=== PATIENT | female | born 1965 | race Caucasian/White ===

== ENCOUNTER 2017-09-03 08:44 | Day surgery (SDC) | payer OTHER ==
[~2017-09-03] VITALS: Ht 170.2 cm; Wt 130.6 kg
[~2017-09-03 08:44] MED LIST: ACYC800 PO; ALPR.25 PO; ALPR.5 PO; ALPR1 PO; Bactrim Ds Tab1 EACH PO; CARI350 PO; CEPH500 PO; ESCI10 PO; ESTR2 PO; FAMO20 PO; GABA400 PO; HORMONE PATCH; HYDACE5 PO; IBUHYD PO; LISI20 PO; MULTIVITAMIN PO; OXYACE5T PO; PROM25 PO; RXOXYACE PO; RXPROACE PO; TRAZ100 PO
[2017-09-03] MEDS ORDERED: GABA100 PO (09:47)
[2017-09-03] MEDS ORDERED: DULO60 PO (09:48)
[2017-09-03] MEDS ORDERED: TRAZ100 PO (09:52)
== END 2017-09-03 13:48 | disposition home or self-care (01) ==
LOC: ORSCSDS 08:44
PROVIDERS: Orthopaedic Surgery
PROC: 0RNK4ZZ Release Left Shoulder Joint, Percutaneous Endoscopic Approach (ICD-10-PCS; principal; 2017-09-03 10:45)
PROC: 0LQ24ZZ Repair Left Shoulder Tendon, Percutaneous Endoscopic Approach (ICD-10-PCS; principal; 2017-09-03 10:45)
PROC: 0LS24ZZ Reposition Left Shoulder Tendon, Percutaneous Endoscopic Approach (ICD-10-PCS; principal; 2017-09-03 10:45)
DX: M75.122 Complete rotator cuff tear or rupture of left shoulder, not specified as traumatic (principal); M75.22 Bicipital tendinitis, left shoulder; M75.42 Impingement syndrome of left shoulder; I10 Essential (primary) hypertension; Z87.891 Personal history of nicotine dependence; Z86.73 Personal history of transient ischemic attack (TIA), and cerebral infarction without residual deficits; E66.01 Morbid (severe) obesity due to excess calories; Z68.42 Body mass index [BMI] 45.0-49.9, adult; Z79.899 Other long term (current) drug therapy
CPT/HCPCS: C1713; J0171; J0330; J0690; J1100; J2250; J2370; J2405; J2710; J3010; J7120

== ENCOUNTER 2018-05-12 22:19 | Inpatient (IN) | payer OTHER ==
[~2018-05-12] VITALS: Ht 170.2 cm; Wt 134.5 kg
[~2018-05-12 22:19] MED LIST changes: +DULO60 PO; +GABA100 PO
[2018-05-12 22:49] LABS: BASOPHILS ABSOLUTE AUTO 0.05 K/mm3 (0.00-0.23); BASOPHILS PERCENT AUTO 1 % (0-2); EOSINOPHILS ABSOLUTE AUTO 0.04 K/mm3 (0.00-0.68); EOSINOPHILS PERCENT AUTO 0 % (0-6); Hematocrit 43.2 % (33.0-51.0); Hemoglobin 13.9 g/dL (11.5-16.0); IMMATURE GRAN ABSOLUTE AUTO 0.07 K/mm3 (0.00-0.10); IMMATURE GRAN PERCENT AUTO 1 % (0-1); LYMPHOCYTES ABSOLUTE AUTO 1.17 K/mm3 (0.84-5.20); LYMPHOCYTES PERCENT AUTO 11 % (21-46); MONOCYTES ABSOLUTE AUTO 0.16 K/mm3 (0.16-1.47); MONOCYTES PERCENT AUTO 2 % (4-13); Mean Corpuscular HGB 28.6 pg (26.0-34.0); Mean Corpuscular HGB Conc 32.2 g/dL (31.5-36.5); Mean Corpuscular Volume 89 fL (80-100); Mean Platelet Volume 8.8 fL (9.1-12.4); NEUTROPHILS ABSOLUTE AUTO 9.51 K/mm3 (1.96-9.15); NEUTROPHILS PERCENT AUTO 86 % (41-73); Platelet Count 370 K/mm3 (150-400); RDW Coefficient Variation 12.8 % (11.7-14.2); RDW Standard Deviation 41.8 fL (35.1-46.3); Red Blood Cell Count 4.86 M/mm3 (3.80-5.20)
[2018-05-12] MEDS ORDERED: PRED20 PO (22:58)
[2018-05-12] MEDS ORDERED: BENZ100A ×2 (22:59)
[2018-05-12] MEDS ORDERED: Zithromax Tri-500 MG (23:00)
[2018-05-12 23:06] LABS: Troponin I <0.015 ng/mL (0.000-0.040)
[2018-05-12 23:13] LABS: Alanine Aminotransfer (ALT/SGP 23 U/L (12-78); Albumin, Blood 3.7 g/dL (3.4-5.0); Albumin/Globulin Ratio 0.8 (0.8-1.8); Alk Phos 66 U/L (50-136); Anion Gap 8 mmol/L (6-16); Aspartate Aminotrans (AST/SGOT 15 U/L (12-37); Bilirubin, Total 0.3 mg/dL (0.1-1.0); Blood Urea Nitrogen 19 mg/dL (8-24); Bun/Creatinine Ratio 27.5 (12.0-20.0); CO2, Blood 23 mmol/L (21-32); Calcium, Blood 9.2 mg/dL (8.5-10.1); Chloride, Blood 107 mmol/L (98-108); Creatinine, Blood 0.69 mg/dL (0.40-1.00); Globulin, Blood 4.8 g/dL (2.2-4.0); Glomerular Filtration Rate >60 (60-); Glucose, Blood 130 mg/dL (70-99); Potassium, Blood 4.3 mmol/L (3.5-5.5); Sodium, Blood 138 mmol/L (136-145); Total Protein, Blood 8.5 g/dL (6.4-8.2)
[2018-05-13 00:03] LABS: Base Excess Venous -0.5 mmol/L; PCO2 Venous 35.6 mmHg (38-42); PO2 Venous 49.3 mmHg (38-42); pH Blood Venous 7.43 (7.34-7.37)
--- NOTE | 2018-05-13 01:27 | NUR ---
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 PT ARRIVED TO ROOM VIA W/C, ABLE TO STAND AND TRANSFER SELF TO BED WITH SBA BUT DOES BECOME VERY SOB. LS VERY COARSE WITH EXP WHEEZES T/O. BP ELEVATED. PT STARTED ON IV ABX. CALLED RT FOR NEB TX AND HYDRALAZINE GIVEN. WILL RE-EVALUATE.
--- NOTE | 2018-05-13 06:25 | NUR ---
NEW ADMIT THIS SHIFT FROM ER FOR REACTIVE AIRWAY. PT WAS VERY SOB WITH WHEEZES WHEN ARRIVED TO UNIT. THEN DEVELOPED SEVERE CALERO. CALLED DR. RINCON TWICE WITH RE TO BP AND CALERO. PT WAS MEDICATED (PER EMAR) AND IS NOW FINALLY RESTING WELL WITH NO RESP DISTRESS AND ON RA. WILL CONT TO MONITOR AND CALL LIGHT IS IN REACH.
[2018-05-13 06:42] LABS: Hematocrit 42.9 % (33.0-51.0); Hemoglobin 13.9 g/dL (11.5-16.0); Mean Corpuscular HGB 28.3 pg (26.0-34.0); Mean Corpuscular HGB Conc 32.4 g/dL (31.5-36.5); Mean Corpuscular Volume 87 fL (80-100); Mean Platelet Volume 8.6 fL (9.1-12.4); Platelet Count 378 K/mm3 (150-400); RDW Coefficient Variation 12.8 % (11.7-14.2); RDW Standard Deviation 40.8 fL (35.1-46.3); Red Blood Cell Count 4.91 M/mm3 (3.80-5.20); White Blood Cell Count 14.31 K/mm3 (4.00-11.30)
[2018-05-13 07:02] LABS: Alanine Aminotransfer (ALT/SGP 24 U/L (12-78); Albumin, Blood 3.6 g/dL (3.4-5.0); Albumin/Globulin Ratio 0.8 (0.8-1.8); Alk Phos 65 U/L (50-136); Anion Gap 10 mmol/L (6-16); Aspartate Aminotrans (AST/SGOT 16 U/L (12-37); Bilirubin, Total 0.4 mg/dL (0.1-1.0); Blood Urea Nitrogen 14 mg/dL (8-24); CO2, Blood 24 mmol/L (21-32); Calcium, Blood 8.9 mg/dL (8.5-10.1); Chloride, Blood 106 mmol/L (98-108); Creatinine, Blood 0.64 mg/dL (0.40-1.00); Globulin, Blood 4.6 g/dL (2.2-4.0); Glomerular Filtration Rate >60 (60-); Glucose, Blood 155 mg/dL (70-99); Potassium, Blood 3.7 mmol/L (3.5-5.5); Sodium, Blood 140 mmol/L (136-145); Total Protein, Blood 8.2 g/dL (6.4-8.2)
[2018-05-13 07:04] LABS: CPK Creatine Kinase 125 U/L (26-193); Troponin I <0.015 ng/mL (0.000-0.040)
[2018-05-13 15:09] LABS: CPK Creatine Kinase 97 U/L (26-193); Troponin I <0.015 ng/mL (0.000-0.040)
--- NOTE | 2018-05-13 18:33 | NUR ---
SUMMARY NO ACUTE CHANGES T/O SHIFT. PT SOB W/EXERTION. USING BSC INDEPENDENTLY. C/O OF DYSPEPSIA THIS AFTERNOON. OBTAINED ORDER AND ADMINISTERED MAALOX WHICH PT SAID RESOLVED DISCOMFORT. VSS. PLEASANT AND COOPERATIVE.
[2018-05-14 05:09] LABS: BASOPHILS ABSOLUTE AUTO 0.03 K/mm3 (0.00-0.23); BASOPHILS PERCENT AUTO 0 % (0-2); EOSINOPHILS PERCENT AUTO 0 % (0-6); Hematocrit 42.9 % (33.0-51.0); Hemoglobin 13.4 g/dL (11.5-16.0); IMMATURE GRAN ABSOLUTE AUTO 0.19 K/mm3 (0.00-0.10); IMMATURE GRAN PERCENT AUTO 1 % (0-1); LYMPHOCYTES ABSOLUTE AUTO 1.43 K/mm3 (0.84-5.20); LYMPHOCYTES PERCENT AUTO 7 % (21-46); MONOCYTES ABSOLUTE AUTO 0.82 K/mm3 (0.16-1.47); MONOCYTES PERCENT AUTO 4 % (4-13); Mean Corpuscular HGB 28.3 pg (26.0-34.0); Mean Corpuscular HGB Conc 31.2 g/dL (31.5-36.5); Mean Platelet Volume 9.9 fL (9.1-12.4); NEUTROPHILS ABSOLUTE AUTO 17.09 K/mm3 (1.96-9.15); NEUTROPHILS PERCENT AUTO 87 % (41-73); Platelet Count 324 K/mm3 (150-400); RDW Coefficient Variation 13.2 % (11.7-14.2); Red Blood Cell Count 4.73 M/mm3 (3.80-5.20); White Blood Cell Count 19.56 K/mm3 (4.00-11.30)
[2018-05-14 05:12] LABS: Mean Corpuscular Volume 91 fL (80-100)
--- NOTE | 2018-05-14 05:13 | NUR ---
SUMMARY PT HAS DONE WELL THROUGH THE NIGHT. SHE WAS ABLE TO SLEEP BETWEEN BREATHING TX. LUNGS REMAIN DIM IN BASES, EXP WHEEZE, NO PRODUCTIVE COUGH, ON ROOM AIR. PT IS INDEPENDENT TO BSC. DENIES PAIN/NAUSEA. REFLUX TREATED WITH MAALOX PER PT REQUEST/EMAR. VOIDING WNL, VSS. WCTM. CALL LIGHT IN REACH
[2018-05-14 05:55] LABS: Alanine Aminotransfer (ALT/SGP 22 U/L (12-78); Albumin, Blood 3.5 g/dL (3.4-5.0); Albumin/Globulin Ratio 0.8 (0.8-1.8); Alk Phos 60 U/L (50-136); Anion Gap 6 mmol/L (6-16); Aspartate Aminotrans (AST/SGOT 11 U/L (12-37); Bilirubin, Total 0.5 mg/dL (0.1-1.0); Blood Urea Nitrogen 19 mg/dL (8-24); Bun/Creatinine Ratio 28.4 (12.0-20.0); CO2, Blood 28 mmol/L (21-32); Calcium, Blood 9.1 mg/dL (8.5-10.1); Chloride, Blood 106 mmol/L (98-108); Creatinine, Blood 0.67 mg/dL (0.40-1.00); Globulin, Blood 4.3 g/dL (2.2-4.0); Glomerular Filtration Rate >60 (60-); Glucose, Blood 111 mg/dL (70-99); Magnesium, Blood 2.5 mg/dL (1.6-2.4); Potassium, Blood 3.8 mmol/L (3.5-5.5); Sodium, Blood 140 mmol/L (136-145); Total Protein, Blood 7.8 g/dL (6.4-8.2)
--- NOTE | 2018-05-14 11:00 | NUR ---
PT CALLED. HAS TRIAMCILOLONE ACETONIDE CREAM, FROM HOME. REQUEST TO USE. CALLED DR STACK. SHE AGREED IS FINE TO USE HOME MED. PLACED ON EMAR. SENT TO PHARMACY TO LABEL.
--- NOTE | 2018-05-14 13:10 | NUR ---
PT PLEASANT COOP A/O. STATES FEELS SOME BETTER THAN LAST FEW DAYS. IS SHAKEY FROM STEROIDS PER PT. IS NOT NORMAL FOR HER. H/R REG, NO MURMER NOTED. PER TELE: NSR AT 92. LUNGS EXP WHEEZY T/O. RESP EASY, UNLABORED. ON R.A. BT X4 LAST BM 2 DAYS. VOIDS PER BSC. INDEPENDANT. BED IN LOW POSITION, CALL LITE IN REACH. CALLS APPROP
--- NOTE | 2018-05-14 13:15 | NUR ---
PT REQUESTED OUT TO GET AIR. AGREED. ASKED IF TO SMOKE. SHE STATES NO, ONLY USES MED [employer]. REQUEST NOT USE AT HOSP. SHE AGREED. PT AND HUSB OUT FOR ABOUT 15 MIN AND RETURNED
--- NOTE | 2018-05-14 15:55 | NUR ---
STATES XANAX HELPED. LESS JITTERY
--- NOTE | 2018-05-14 16:56 | NUR ---
PT PLEASANT NO C/O PAIN TODAY. STATES ZANAX DID HELP TO STOP JITTERS. PT REMAINS WHEEZY T.O. HUSB IN ROOM MOST OF AFTERNOON. NO C/O SOB. NO OTHER CONCERNS AT THIS TIME. BED IN LOW POSITION, CALL LITE IN REACH, CALLS APPROP
[2018-05-15 04:26] LABS: BASOPHILS ABSOLUTE AUTO 0.04 K/mm3 (0.00-0.23); BASOPHILS PERCENT AUTO 0 % (0-2); EOSINOPHILS ABSOLUTE AUTO 0.01 K/mm3 (0.00-0.68); EOSINOPHILS PERCENT AUTO 0 % (0-6); Hematocrit 42.7 % (33.0-51.0); Hemoglobin 13.1 g/dL (11.5-16.0); IMMATURE GRAN ABSOLUTE AUTO 0.09 K/mm3 (0.00-0.10); IMMATURE GRAN PERCENT AUTO 1 % (0-1); LYMPHOCYTES ABSOLUTE AUTO 2.58 K/mm3 (0.84-5.20); LYMPHOCYTES PERCENT AUTO 20 % (21-46); MONOCYTES ABSOLUTE AUTO 0.78 K/mm3 (0.16-1.47); MONOCYTES PERCENT AUTO 6 % (4-13); Mean Corpuscular HGB 28.2 pg (26.0-34.0); Mean Corpuscular HGB Conc 30.7 g/dL (31.5-36.5); Mean Corpuscular Volume 92 fL (80-100); Mean Platelet Volume 9.3 fL (9.1-12.4); NEUTROPHILS ABSOLUTE AUTO 9.64 K/mm3 (1.96-9.15); NEUTROPHILS PERCENT AUTO 73 % (41-73); Platelet Count 339 K/mm3 (150-400); RDW Coefficient Variation 13.2 % (11.7-14.2); RDW Standard Deviation 44.7 fL (35.1-46.3); Red Blood Cell Count 4.64 M/mm3 (3.80-5.20); White Blood Cell Count 13.14 K/mm3 (4.00-11.30)
[2018-05-15 04:47] LABS: Anion Gap 7 mmol/L (6-16); Blood Urea Nitrogen 22 mg/dL (8-24); Bun/Creatinine Ratio 30.3 (12.0-20.0); CO2, Blood 28 mmol/L (21-32); Calcium, Blood 8.7 mg/dL (8.5-10.1); Chloride, Blood 106 mmol/L (98-108); Creatinine, Blood 0.73 mg/dL (0.40-1.00); Glomerular Filtration Rate >60 (60-); Glucose, Blood 122 mg/dL (70-99); Potassium, Blood 3.8 mmol/L (3.5-5.5); Sodium, Blood 141 mmol/L (136-145)
--- NOTE | 2018-05-15 04:56 | NUR ---
SHIFT SUMMARY PT A&O X4 T/O SHIFT. WHEEZE IN BILAT LUNGS. PT REPORTS SOME SOB WITH ACTIVITY. PT STS SHE FEELS HER CHEST CONGESTION IS BREAKING LOOSE. 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 DYSPEPSIA TX X1 PER EMAR. CALL LIGHT IN REACH; PT DEMONSTRATE USE. WCTM UNTIL REPORT GIVEN TO DAY SHIFT RN .
[2018-05-15 05:49] LABS: Adenovirus Not Detected (NOT DETECT); Coronavirus 229E Not Detected (NOT DETECT); Coronavirus HKU1 Not Detected (NOT DETECT); Coronavirus NL63 Not Detected (NOT DETECT); Coronavirus OC43 Not Detected (NOT DETECT); Human Metapneumovirus Not Detected (NOT DETECT); Human Rhinovirus/Enterovirus Not Detected (NOT DETECT); Influenza A Detected (NOT DETECT); Influenza A/H1 Not Detected (NOT DETECT); Influenza A/H3 Not Detected (NOT DETECT); Influenza B Not Detected (NOT DETECT); Parainfluenza Virus 1 Not Detected (NOT DETECT)
[2018-05-15 05:52] LABS: Bordetella pertussis Not Detected (NOT DETECT); Chlamydophila pneumoniae Not Detected (NOT DETECT); Mycoplasma pneumoniae Not Detected (NOT DETECT); Parainfluenza Virus 2 Not Detected (NOT DETECT); Parainfluenza Virus 3 Not Detected (NOT DETECT); Parainfluenza Virus 4 Not Detected (NOT DETECT); Respiratory Syncytial Virus Not Detected (NOT DETECT)
[2018-05-15 08:34] LABS: Influenza A/2009-H1 Detected (NOT DETECT)
--- NOTE | 2018-05-15 18:04 | NUR ---
SHIFT SUMMARY PT EATING AND DRINKING. IND WITH BRP. PT BEEN ASSISTED WITH ADL'S PRN. PT CONT TO REPORT INDIGESTION BETTER AFTER HAVING BROWN COW (PEPSI AND MILK). RT BEEN TO SEE PT WELL.
[2018-05-16 04:36] LABS: BASOPHILS ABSOLUTE AUTO 0.05 K/mm3 (0.00-0.23); BASOPHILS PERCENT AUTO 0 % (0-2); EOSINOPHILS ABSOLUTE AUTO 0.05 K/mm3 (0.00-0.68); EOSINOPHILS PERCENT AUTO 0 % (0-6); Hematocrit 39.4 % (33.0-51.0); Hemoglobin 12.4 g/dL (11.5-16.0); IMMATURE GRAN ABSOLUTE AUTO 0.07 K/mm3 (0.00-0.10); IMMATURE GRAN PERCENT AUTO 1 % (0-1); LYMPHOCYTES ABSOLUTE AUTO 2.93 K/mm3 (0.84-5.20); LYMPHOCYTES PERCENT AUTO 26 % (21-46); MONOCYTES ABSOLUTE AUTO 0.91 K/mm3 (0.16-1.47); MONOCYTES PERCENT AUTO 8 % (4-13); Mean Corpuscular HGB 28.4 pg (26.0-34.0); Mean Corpuscular HGB Conc 31.5 g/dL (31.5-36.5); Mean Corpuscular Volume 90 fL (80-100); Mean Platelet Volume 9.7 fL (9.1-12.4); NEUTROPHILS ABSOLUTE AUTO 7.27 K/mm3 (1.96-9.15); NEUTROPHILS PERCENT AUTO 65 % (41-73); Platelet Count 309 K/mm3 (150-400); RDW Coefficient Variation 13.1 % (11.7-14.2); Red Blood Cell Count 4.37 M/mm3 (3.80-5.20); White Blood Cell Count 11.28 K/mm3 (4.00-11.30)
[2018-05-16 04:50] LABS: Alanine Aminotransfer (ALT/SGP 21 U/L (12-78); Albumin, Blood 2.9 g/dL (3.4-5.0); Albumin/Globulin Ratio 0.8 (0.8-1.8); Alk Phos 53 U/L (50-136); Anion Gap 7 mmol/L (6-16); Aspartate Aminotrans (AST/SGOT 7 U/L (12-37); Bilirubin, Total 0.2 mg/dL (0.1-1.0); Blood Urea Nitrogen 27 mg/dL (8-24); Bun/Creatinine Ratio 34.2 (12.0-20.0); CO2, Blood 27 mmol/L (21-32); Calcium, Blood 8.2 mg/dL (8.5-10.1); Chloride, Blood 107 mmol/L (98-108); Creatinine, Blood 0.79 mg/dL (0.40-1.00); Globulin, Blood 3.5 g/dL (2.2-4.0); Glomerular Filtration Rate >60 (60-); Glucose, Blood 128 mg/dL (70-99); Potassium, Blood 3.7 mmol/L (3.5-5.5); Sodium, Blood 141 mmol/L (136-145); Total Protein, Blood 6.4 g/dL (6.4-8.2)
--- NOTE | 2018-05-16 06:12 | NUR ---
SHIFT SUMMARY PT A&O X4 T/O SHIFT. EXP WHEEZE IMPROVED FROM 24 HRS AGO. RA; RT TX PER EMAR. INDEPENDENT IN ROOM; STS SLIGHT SOB WITH ACTIVITY. NON-PRODUCTIVE COUGH NOTED. PAIN MANGED PER EMAR. 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 PT DENIES CP AND NAUSEA T/O SHFIT. CALL LIGHT IN REACH; PT DEMONSTRATES USE. WCTM UNTIL REPORT TO DAY SHIFT RN.
[2018-05-16] MEDS ORDERED: PRED10 PO (11:20)
[2018-05-16] MEDS ORDERED: ALBU90OI INH (11:21)
[2018-05-16] MEDS ORDERED: OSEL75CA PO (11:21)
[2018-05-16] MEDS ORDERED: GUAI600T33 PO (11:21)
--- NOTE | 2018-05-16 11:25 | NUR ---
RT IN ROOM.
--- NOTE | 2018-05-16 11:50 | NUR ---
DISCHARGE: PT REPORTS BREATHING BETTER. PT REPORTS UNDERSTANDING OF DISCHARGE INSTRUCTIONS. CONVERTER OPERATOR ASSISTED WITH PAPERWORK AND MEDS WERE FAXED TO PHARMACY OF PT'S CHOICE. IV OUT WNL.
== END 2018-05-16 11:51 | disposition home or self-care (01) | DRG 194 ==
LOC: ER 22:19 → SURS 05-13 00:25
PROVIDERS: Emergency Medicine; Internal Medicine; ADMIT Internal Medicine
DX: J10.1 Influenza due to other identified influenza virus with other respiratory manifestations (principal); J44.1 Chronic obstructive pulmonary disease with (acute) exacerbation; J44.0 Chronic obstructive pulmonary disease with (acute) lower respiratory infection; I10 Essential (primary) hypertension; J45.909 Unspecified asthma, uncomplicated; F41.9 Anxiety disorder, unspecified; J20.9 Acute bronchitis, unspecified; Z87.891 Personal history of nicotine dependence; Z88.5 Allergy status to narcotic agent; Z88.0 Allergy status to penicillin; Z79.52 Long term (current) use of systemic steroids; Z79.899 Other long term (current) drug therapy
CPT/HCPCS: 36415; 71046; 80048; 80053; 82550; 82803; 83735; 83880; 84443; 84484; 85025; 85027; 87486; 87581; 87633; 87798; 90686; 93005; 93010; 94640; 94760; 96361; 96374; 96375; 99285-25; J0360; J0456; J1170; J1650; J1885; J2405; J2930; J3010; J7030; J7050; Q0163

== ENCOUNTER 2019-10-21 12:40 | Emergency (ER) | payer OTHER ==
[~2019-10-21] VITALS: Ht 170.2 cm; Wt 127.0 kg
[~2019-10-21 12:40] MED LIST changes: +ALBU90OI INH; +Alprazolam0.5 MG PO; +Aspir 8181 MG PO; +BENZ100A; +Cymbalta60 MG PO; +GUAI600T33 PO; +IBUP800; +OSEL75CA PO; +PRED10 PO; +PRED20 PO; +Ranitidine HCl300 M1 PO; +Zithromax Tri-500 MG
[2019-10-21 13:31] LABS: BASOPHILS ABSOLUTE AUTO 0.07 K/mm3 (0.00-0.23); BASOPHILS PERCENT AUTO 1 % (0-2); EOSINOPHILS ABSOLUTE AUTO 0.22 K/mm3 (0.00-0.68); EOSINOPHILS PERCENT AUTO 2 % (0-6); Hematocrit 44.2 % (33.0-51.0); Hemoglobin 13.8 g/dL (11.5-16.0); IMMATURE GRAN ABSOLUTE AUTO 0.06 K/mm3 (0.00-0.10); IMMATURE GRAN PERCENT AUTO 0 % (0-1); LYMPHOCYTES ABSOLUTE AUTO 1.82 K/mm3 (0.84-5.20); LYMPHOCYTES PERCENT AUTO 13 % (21-46); MONOCYTES ABSOLUTE AUTO 0.76 K/mm3 (0.16-1.47); MONOCYTES PERCENT AUTO 5 % (4-13); Mean Corpuscular HGB 27.5 pg (26.0-34.0); Mean Corpuscular HGB Conc 31.2 g/dL (31.5-36.5); Mean Corpuscular Volume 88 fL (80-100); Mean Platelet Volume 10.8 fL (9.1-12.4); NEUTROPHILS ABSOLUTE AUTO 11.42 K/mm3 (1.96-9.15); NEUTROPHILS PERCENT AUTO 80 % (41-73); Platelet Count 248 K/mm3 (150-400); RDW Coefficient Variation 13.6 % (11.7-14.2); RDW Standard Deviation 44.2 fL (35.1-46.3); Red Blood Cell Count 5.01 M/mm3 (3.80-5.20); White Blood Cell Count 14.35 K/mm3 (4.00-11.30)
[2019-10-21 13:32] LABS: Source, Urine Clean Catch
[2019-10-21 13:35] LABS: Appearance, Urine Turbid (Clear); Bilirubin, Urine Neg (Neg); Blood, Urine 5+ (Neg); Color, Urine Red (P-Yellow); Glucose Qualitative, Urine Neg (Neg); Ketones, Urine 1+ (Neg); Leukocyte Esterase, Urine 3+ (Neg); Nitrite, Urine Pos (Neg); Protein, Urine 3+ (Neg); Specific Gravity, Urine 1.015 (1.003-1.022); Urobilinogen, Urine NORM (Normal)
[2019-10-21 13:50] LABS: Bacteria Mod /hpf; Red Blood Cells, Urine TNTC /hpf (0-2); Squamous Epithelial Cells Few /hpf (Few); White Blood Cells, Urine 25-50 /hpf (0-5)
[2019-10-21 13:52] LABS: Alanine Aminotransfer (ALT/SGP 25 U/L (12-78); Albumin, Blood 3.7 g/dL (3.4-5.0); Albumin/Globulin Ratio 0.8 (0.8-1.8); Alk Phos 71 U/L (50-136); Anion Gap 5 mmol/L (6-16); Aspartate Aminotrans (AST/SGOT 19 U/L (12-37); Bilirubin, Total 0.4 mg/dL (0.1-1.0); Blood Urea Nitrogen 18 mg/dL (8-24); Bun/Creatinine Ratio 22.6 (12.0-20.0); CO2, Blood 27 mmol/L (21-32); Calcium, Blood 9.2 mg/dL (8.5-10.1); Chloride, Blood 107 mmol/L (98-108); Globulin, Blood 4.7 g/dL (2.2-4.0); Glomerular Filtration Rate >60 (60-); Glucose, Blood 94 mg/dL (70-99); Potassium, Blood 4.2 mmol/L (3.5-5.5); Sodium, Blood 139 mmol/L (136-145); Total Protein, Blood 8.4 g/dL (6.4-8.2)
[2019-10-21] MEDS ORDERED: CEFP200 PO (16:02)
[2019-10-21] MEDS ORDERED: Percocet 5-3251 EACH PO (16:02)
[2019-10-21] MEDS ORDERED: ONDA4ODT MM (16:02)
== END 2019-10-21 17:07 | disposition home or self-care (01) ==
LOC: ER 12:40
PROVIDERS: Emergency Medicine
DX: N23 Unspecified renal colic (principal); Z88.0 Allergy status to penicillin; Z88.5 Allergy status to narcotic agent; Z79.82 Long term (current) use of aspirin; Z79.899 Other long term (current) drug therapy; I10 Essential (primary) hypertension; Z87.891 Personal history of nicotine dependence
CPT/HCPCS: 36415; 74176; 80053; 81001; 83690; 85025; 87077; 87086; 87186; 96361; 96365; 96375; 96376; 99284-25; J0696; J1885; J2405; J3010; J7030

== ENCOUNTER → 2024-06-12 | Outpatient (CLI) | payer MEDICARE, OTHER ==
[~2024-06-12] MED LIST changes: +CEFP200 PO; +ONDA4ODT MM; +Percocet 5-3251 EACH PO
[2024-06-12 20:18] LABS: Protein, Urine Quantitative 15.8 mg/dL (0.0-11.9)
[2024-06-12 20:21] LABS: Microalbumin, Urine Quant. 34.7 mg/L (0.000-20.000)
[2024-06-16 01:30] LABS: CREATININE,URINE - PER 24H 1664 mg/d (500-1400); CREATININE,URINE - PER VOLUME 128 mg/dL; HOURS COLLECTED 24 hr; METANEPHRINE,UR - RATIO TO CRT 52 ug/g CRT (0-300); METANEPHRINE,URINE - PER 24H 87 ug/d (36-229); METANEPHRINE,URN - PER VOLUME 67 ug/L; NORMETANEPHRINE,U - PER VOLUME 393 ug/L; NORMETANEPHRINE,URN - PER 24H 511 ug/d (95-650); NORMETANEPHRINE,URN/CRT RATIO 307 ug/g CRT (0-400); TOTAL VOLUME 1300 mL
== END | disposition home or self-care (01) ==
LOC: LAB SHORT 11:32 → LAB 11:32 → EDSTATUS 06-11 13:35 → LAB FUT 06-11 13:35
PROVIDERS: Internal Medicine Nephrology
DX: N18.30 Chronic kidney disease, stage 3 unspecified (principal); D63.1 Anemia in chronic kidney disease; N25.81 Secondary hyperparathyroidism of renal origin; E55.9 Vitamin D deficiency, unspecified; E78.00 Pure hypercholesterolemia, unspecified; D51.8 Other vitamin B12 deficiency anemias; D52.8 Other folate deficiency anemias; D50.9 Iron deficiency anemia, unspecified; R76.9 Abnormal immunological finding in serum, unspecified; R94.5 Abnormal results of liver function studies; R94.6 Abnormal results of thyroid function studies
CPT/HCPCS: 81050; 82043; 82570; 83835; 84156